=== PATIENT | female | born 2000 | race Caucasian/White ===

== ENCOUNTER 2024-09-16 18:17 | Emergency (ER) | payer MEDICAID, OTHER ==
[~2024-09-16] VITALS: Ht 167.6 cm; Wt 45.0 kg
[2024-09-16 18:19] VITALS: O2SAT 100
[2024-09-16 18:27] VITALS: BP 106/64; PULSE 76; RESP 16; TEMP 36.7; O2SAT 98
[2024-09-16 19:49] LABS: BASOPHILS % 0.2 % (0.0-2.0); EOSINOPHILS % 1.2 % (0.0-5.0); HEMATOCRIT. 36.3 % (36.0-48.0); HEMOGLOBIN. 12.3 g/dL (12.0-16.0); LYMPHOCYTES % 41.6 % (20.0-50.0); MEAN CORPUSCULAR HEMOGLOBIN 31.3 pg (28.0-32.0); MEAN CORPUSCULAR HGB CONC 33.9 g/dL (31.0-37.0); MEAN CORPUSCULAR VOLUME 92.3 fL (81.0-99.0); MEAN PLATELET VOLUME 8.9 fl (7.4-10.4); MONOCYTES % 7.4 % (2.0-8.0); NEUTROPHILS % 49.6 % (40.0-76.0); PLATELET 166 x1000/uL (130-400); RED BLOOD CELL COUNT 3.93 mill/uL (4.2-5.4); RED CELL DISTRIBUTION WIDTH 12.2 % (11.6-14.6); WHITE BLOOD COUNT 6.7 x1000/uL (4.5-11.0)
[2024-09-16 19:52] LABS: CHLORIDE 107 mEq/L (98-107); POTASSIUM 4.3 mEq/L (3.5-5.1); SODIUM 139 mEq/L (136-145)
[2024-09-16 19:53] LABS: CARBON DIOXIDE 25 mEq/L (21-32)
[2024-09-16 19:58] LABS: CREATININE 0.5 mg/dL (0.6-1.0); GLUCOSE 100 mg/dL (70-105); UREA NITROGEN BLOOD 14 mg/dL (9-23)
[2024-09-16 20:15] LABS: HCG SCREEN NEGATIVE
[2024-09-16 20:25] LABS: TROPONIN I HIGH SENSITIVITY < 4 ng/L (3.0-34)
== END 2024-09-16 20:58 | disposition home or self-care (01) ==
LOC: ER 18:17
DX: R07.89 Other chest pain (principal); E87.8 Other disorders of electrolyte and fluid balance, not elsewhere classified
CPT/HCPCS: 36415; 71045; 80048; 84484; 84703; 85025; 93005; 99285